=== PATIENT | female | born 1940 | race Caucasian/White ===

== ENCOUNTER 2018-11-18 22:35 | Inpatient (IN) | payer MEDICARE, OTHER ==
[~2018-11-18] VITALS: Ht 162.6 cm; Wt 58.6 kg
[2018-11-18 22:45] VITALS: BP 126/72
[2018-11-18] MEDS ORDERED: NS (IVPB) 100 ML ONE (22:52)
[2018-11-18] MEDS ORDERED: DILTIAZEM 125 MG/25 ML IV (CARDIZEM) IV ONE (22:53)
[2018-11-18 23:00] VITALS: BP 82/50
[2018-11-18] MEDS ORDERED: ONDANSETRON 4 MG/2 ML (SDV) Z0FRAN IVP PRN (23:00)
[2018-11-18] MEDS ORDERED: ACETAMINOPHEN 500 MG TAB (TYLENOL) PO PRN (23:00)
[2018-11-18 23:15] VITALS: BP 103/49
[2018-11-18 23:30] VITALS: BP 118/64
[2018-11-18] MEDS ORDERED: HEParin DRIP 25000 UNIT/500ML 500 ML IV SCH ×2 (23:31→23:49)
[2018-11-18] MEDS ORDERED: HEParin 1000 UNIT/ML (10ML VIAL) FOR BOLUS IV PRN (23:45)
[2018-11-19] VITALS (30 sets, daily range): BP systolic 71–132; BP diastolic 39–80
[2018-11-19] MEDS ORDERED: NS IV 500 ML 500 ML ONE (00:15)
[2018-11-19 00:32] LABS: HEMOGLOBIN 11.1 G/DL (11.5-16.0); MEAN PLATELET VOLUME 9.6 FL (7.4-10.4); RED CELL DISTRIBUTION WIDTH 12.7 % (10.0-14.5); WHITE BLOOD COUNT 16.1 10^3/uL (4.3-11.0)
[2018-11-19] MEDS: HEParin 1000 UNIT/ML (10ML VIAL) FOR BOLUS IV SCH ×2 (00:36→01:53)
[2018-11-19 00:38] LABS: PROTHROMBIN TIME PATIENT 13.7 SEC (12.2-14.7)
[2018-11-19] MEDS ORDERED: NS IV 1000 ML 500 ML IV SCH (01:00)
[2018-11-19] MEDS: DILTIAZEM IV FOR DRIP 125 MG in NS (IVPB) 100 ML IV SCH ×2 (01:38→09:05)
[2018-11-19] MEDS ORDERED: NS IV 500 ML 500 ML IV SCH (02:30)
[2018-11-19] MEDS ORDERED: NS (IVPB) 500 ML IV ONE (02:30)
[2018-11-19 03:26] LABS: BASOPHILS % (AUTO) 0 % (0-10); EOSINOPHILS % (AUTO) 0 % (0-10); HEMATOCRIT 31 % (35-52); HEMOGLOBIN 10.9 G/DL (11.5-16.0); LYMPHOCYTES # (AUTO) 1.4 X 10^3 (1.0-4.0); LYMPHOCYTES % (AUTO) 9 % (12-44); MEAN CORPUSCULAR HEMOGLOBIN 33 PG (25-34); MEAN CORPUSCULAR HGB CONC 35 G/DL (32-36); MEAN CORPUSCULAR VOLUME 94 FL (80-99); MEAN PLATELET VOLUME 9.1 FL (7.4-10.4); MONOCYTES # (AUTO) 1.2 X 10^3 (0.0-1.0); MONOCYTES % (AUTO) 8 % (0-12); NEUTROPHILS # (AUTO) 12.4 X 10^3 (1.8-7.8); NEUTROPHILS % (AUTO) 83 % (42-75); PLATELET COUNT 253 10^3/uL (130-400); RED CELL DISTRIBUTION WIDTH 12.4 % (10.0-14.5); WHITE BLOOD COUNT 14.9 10^3/uL (4.3-11.0)
[2018-11-19 03:38] LABS: BUN/CREATININE RATIO 22; CALCIUM 8.1 MG/DL (8.5-10.1); CARBON DIOXIDE 18 MMOL/L (21-32); CHLORIDE 105 MMOL/L (98-107); CREATININE SERUM 0.67 MG/DL (0.60-1.30); GFR ESTIMATED > 60; GLUCOSE 112 MG/DL (70-105); MAGNESIUM 1.8 MG/DL (1.6-2.4); PHOSPHORUS 2.9 MG/DL (2.3-4.7); POTASSIUM 3.8 MMOL/L (3.6-5.0); SODIUM 134 MMOL/L (135-145)
[2018-11-19 05:20] LABS: LYMPHOCYTES % (MANUAL) 13 %; MONOCYTES % (MANUAL) 6 %; NEUTROPHILS % (MANUAL) 81 %
--- NOTE | 2018-11-19 05:45 | Pulmonary Consultation ---
History of Present Illness History of Present Illness Date of Consultation 11/19/18 05:40 Time Seen by Provider: 05:40 Date of Admission History of Present Illness 78yo [place] [facility] [place] Afib RVR and Troponin [place] [facility] 1.34. Pt describes pain as midepigastric pain radiating up her chest while eating. No prior episodes like this. Pain was relieved upon [facility] [place]. Symptom onset was at 1am after returning from [facility]. She was nauseated and "I made my self vomit". No wt loss Allergies and Home Medications Allergies Coded Allergies: meperidine (Verified Allergy, Unknown, 11/18/18) Past Awndmeh-Sjfpcq-Whmfhh Hx Patient Social History Alcohol Use: Denies Use Recreational Drug Use: No Recent Hopitalizations: No Seasonal Allergies Seasonal Allergies: No Past Medical History Surgeries: Yes Respiratory: No Cardiac: Yes Neurological: No : No Female Reproductive Disorders: Denies Sexually Transmitted Disease: No HIV/AIDS: No Genitourinary: No Gastrointestinal: Yes Ulcer Musculoskeletal: Yes Chronic Back Pain Endocrine: No HEENT: No Loss of Vision: Denies Hearing Impairment: Denies Cancer: Yes Skin Did You Recieve Any Treatments: Yes What Type of Treatment Did You: Surgical Intervention Psychosocial: No Integumentary: Yes (skin cancer) Blood Disorders: No Adverse Reaction/Blood Tranf: No Family Medical History Myocardial infarction 19 FATHER Review of Systems Time Seen by Provider: 06:01 Constitutional: Weakness, Malaise; No: Fever, Chills, Sweats, Other Eyes: No: Pain, Vision change, Conjunctivae inflammation, Eyelid inflammation, Other, Redness ENT: No: Ear pain, Ear discharge, Nose pain, Nose discharge, Nose congestion, Mouth pain, Mouth swelling, Throat pain, Throat swelling, Other Respiratory: No: Cough, Dry, Shortness of breath, SOB with excertion, Wheezing, Hemoptysis, Pleuritic Pain, Sputum, Wheezing, Other Cardiovascular: Chest Pain, Palpitations, Lt Headedness; No: Orthopnea, Paroxysmal Noc. Dyspnea, Edema, Other Gastrointestinal: Nausea, Vomiting, Abdominal Pain; No: Diarrhea, Constipation Neurological: Weakness; No: Change in speech, Confusion Sepsis Event Evaluation Height, Weight, BMI Height: 5'4.00" Weight: 122lbs. 4.0oz. 55.222133pg; 21.0 BMI Method: Exam Exam Vital Signs Date Time Temp Pulse Resp B/P (MAP) Pulse Ox O2 Delivery O2 Flow Rate FiO2 11/19/18 05:00 89 23 94/56 (69) 96 Room Air 11/19/18 04:00 97 Room Air 11/19/18 04:00 98.0 11/19/18 04:00 97 24 102/46 (64) 96 Room Air 11/19/18 03:00 98 26 104/45 (64) 97 Room Air 11/19/18 02:30 109 18 97/46 (63) 95 Room Air 11/19/18 02:00 102 25 103/48 (66) 97 Room Air 11/19/18 01:30 104 27 95/40 (58) 97 Room Air 11/19/18 01:00 94 22 97/47 (64) 95 Room Air 11/19/18 01:00 94 11/19/18 00:30 94 26 115/64 (81) 98 Room Air 11/19/18 00:00 88 15 89/39 (56) 92 Room Air 11/19/18 00:00 97 Room Air 11/18/18 23:30 92 18 118/64 (82) 90 Room Air 11/18/18 23:15 92 22 103/49 (67) 98 Room Air 11/18/18 23:01 105 11/18/18 23:00 85 22 82/50 (61) 96 Room Air 11/18/18 22:45 97.0 114 15 126/72 (90) 97 Room Air 11/18/18 22:45 97 Room Air I & O 11/19/18 07:00 Intake Total 500 ml Output Total 150 ml Balance 350 ml Height & Weight Height: 5'4.00" Weight: 122lbs. 4.0oz. 55.749740pe; 21.0 BMI Method: General Appearance: No Apparent Distress, WD/WN, Thin HEENT: PERRL/EOMI, Pharynx Normal Neck: Full Range of Motion, Non Tender, Supple Respiratory: No Accessory Muscle Use, No Respiratory Distress, Decreased Breath Sounds Cardiovascular: Regular Rate, Rhythm, No Edema, No Gallop Capillary Refill: Less Than 3 Seconds Gastrointestinal: normal bowel sounds, non tender, soft, no organomegaly Extremity: Normal Capillary Refill, Non Tender, No Pedal Edema Neurologic/Psychiatric: Alert, Oriented x3 Skin: Normal Color, Warm/Dry Lymphatic: No Adenopathy Results Lab Laboratory Tests 11/19/18 00:18 11/19/18 03:14 Assessment/Plan Assessment/Plan Afib RVR-- New on set - Currently controlled -Possible LUDY and cardioversion today -Cardizem gtt is currently off -Hep gtt Midepigastric pain -Check Amylase, Lipase -Start protonix -Monitor - resolved since admission -recheck troponin and EKG Hypotension -improved with IVF -Continue to monitor -IVF 125 NS Hyponatremia -monitor --Denies wt loss Tobacco use -education DWAYNE LONG DO Nov 19, 2018 05:45
[2018-11-19] MEDS: NS IV 1000 ML 1,000 ML IV SCH ×5 (06:15→22:25)
[2018-11-19 06:35] LABS: ALANINE AMINOTRANSFERASE 8 U/L (0-55); ALBUMIN 3.3 GM/DL (3.2-4.5); ALKALINE PHOSPHATASE 59 U/L (40-136); AMYLASE 32 U/L (25-125); BILIRUBIN,TOTAL 0.9 MG/DL (0.1-1.0); BUN/CREATININE RATIO 24; CARBON DIOXIDE 17 MMOL/L (21-32); CHLORIDE 105 MMOL/L (98-107); CREATININE SERUM 0.66 MG/DL (0.60-1.30); GFR ESTIMATED > 60; GLUCOSE 116 MG/DL (70-105); LIPASE 37 U/L (8-78); POTASSIUM 3.7 MMOL/L (3.6-5.0); SODIUM 133 MMOL/L (135-145); TOTAL PROTEIN 5.5 GM/DL (6.4-8.2)
[2018-11-19] MEDS: KCL 20 MEQ TAB (K-DUR) PO SCH (06:38)
[2018-11-19] MEDS: MAGNESIUM 1 GM/100 ML IVPB 100 ML IV SCH (06:38)
[2018-11-19] MEDS: POTASSIUM CL 10MEQ/50ML IVPB 50 ML IV SCH (06:38)
[2018-11-19] MEDS: PANTOPRAZOLE 40 MG (PROTONIX) TAB PO SCH (08:06)
--- NOTE | 2018-11-19 08:42 | Diagnostic Imaging Report ---
INDICATION: Atrial fibrillation and myocardial infarction. Frontal chest obtained at 3:05 a.m. FINDINGS: Heart and mediastinal silhouette are normal in appearance. There are chronic appearing increased interstitial markings. There is no acute consolidation or pneumothorax or pleural fluid. There is calcified granuloma in the left lung base and calcified nodes in the left hilum compatible with old granulomatous change. IMPRESSION: Chronic appearing increased interstitial markings. Old granulomatous changes on left-sided above. No acute consolidation or pleural fluid. Dictated by: Dictated on workstation # [id number]
--- NOTE | 2018-11-19 09:03 | History & Physical-Hospitalist ---
History of Present Illness HPI/Chief Complaint Patient is a 78-year-old female with a past medical history of hypertension and tobacco abuse who presented to the emergency department with a chief complaint of weakness and chest pain. She states states that her symptoms started on November 17 [place]. She developed severe mid chest and epigastric pain that she associated with shortness of breath and diaphoresis. Despite this she ate this a.m. and scalloped potatoes which did not help her symptoms. 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 She denies any palpitations, dyspnea on exertion, shortness of breath, previous episodes. She still has lower chest and epigastric pain at this time. It emergency room she was found to have elevated troponin of 1.3 and to be in atrial fibrillation with rapid ventricular rate. She has no known history of coronary artery disease or atrial fibrillation. Source: patient Exam Limitations: no limitations Date Seen 11/19/18 Time Seen by a Provider: 09:02 Attending Physician Cynthia Reyes MD PCP No,Local Physician Referring Physician Date of Admission Nov 18, 2018 at 22:35 Home Medications & Allergies Home Medications Reviewed patient Home Medication Reconciliation performed by pharmacy medication reconciliations mining technician and/or nursing. Patients Allergies have been reviewed. Allergies Allergies Coded Allergies meperidine (Verified Allergy, Unknown, 11/18/18) Past Ypptnct-Hpemin-Fjuynm Hx Past Med/Social Hx: Reviewed Nursing Past Med/Soc Hx Patient Social History Marrital Status: Alcohol Use: Denies Use Recreational Drug Use: No Smoking Status: Current Everyday Smoker Cigaretts per day: 20 Type Used: Cigarettes Physical Abuse Screen: No Sexual Abuse: No Recent Hopitalizations: No Seasonal Allergies Seasonal Allergies: No Past Medical History Surgeries: Appendectomy, Section, Hysterectomy, Tonsillectomy Cardiac: Hypertension : No Sexually Transmitted Disease: No HIV/AIDS: No Female Reproductive Disorders: Denies Gastrointestinal: Ulcer Musculoskeletal: Chronic Back Pain Loss of Vision: Denies Hearing Impairment: Denies Cancer: Skin Did You Recieve Any Treatments: Yes What Type of Treatment Did You: Surgical Intervention History of Blood Disorders: No Adverse Reaction to Blood Peters: No Family History Reviewed Nursing Family Hx Myocardial infarction 19 FATHER Heart Disease Review of Systems Constitutional: diaphoresis, malaise, weakness EENTM: no symptoms reported Respiratory: No hemoptysis, No orthopnea; phlegm, other (pain with inspiration) Cardiovascular: chest pain; No edema, No Hx of Intervention, No palpitations Gastrointestinal: abdominal pain; No constipation, No diarrhea; nausea, vomiting Genitourinary: no symptoms reported Musculoskeletal: no symptoms reported Skin: no symptoms reported Psychiatric/Neurological: No Symptoms Reported Physical Exam Physical Exam Vital Signs Vital Signs - First Documented 11/18/18 22:45 Temp 97.0 Pulse 114 Resp 15 B/P (MAP) 126/72 (90) Pulse Ox 97 O2 Delivery Room Air Capillary Refill : Less Than 3 Seconds Height, Weight, BMI Height: 5'4.00" Weight: 126lbs. 1.0oz. 57.472387ao; 21.0 BMI Method: General Appearance: No Apparent Distress, WD/WN, Thin Eyes: Right Eye Normal Inspection, Right Eye PERRL HEENT: PERRL/EOMI, Normal ENT Inspection, Moist Mucous Membranes; No Scleral Icterus (L), No Scleral Icterus (R) Neck: Normal Inspection, Supple Respiratory: Chest Non Tender, Lungs Clear, No Accessory Muscle Use, No Respiratory Distress Cardiovascular: No Edema, No JVD, No Murmur, Normal Peripheral Pulses, Irregularly Irregular Gastrointestinal: Normal Bowel Sounds, Non Tender, Soft; No Distended, No Guarding Genital/Rectal: Other Extremity: Normal Capillary Refill, Normal Inspection, Non Tender, No Calf Tenderness, No Pedal Edema Neurologic/Psychiatric: Alert, Oriented x3, Normal Mood/Affect; No Aphasia, No Facial Droop Skin: Normal Color, Warm/Dry Results Results/Procedures Labs Laboratory Tests 11/19/18 00:18 11/19/18 03:14 11/19/18 05:55 Patient resulted labs reviewed. Imaging: Reviewed Imaging Report Assessment/Plan Admission Diagnosis Atrial Fibrillation with RVR NSTEMI Admission Status: Inpatient Order (span 2 midnights) Reason for Inpatient Admission: On IV cardizem gtt, needs cardiology consult possible cath or cardioversion Assessment and Plan Atrial fibrillation with rapid ventricular rate Continue Cardizem drip Continue heparin drip Cardiology consultation appreciate Recs Heart rate still in the 120s during my exam may potentially need cardioversion as was also mildly hypotensive on just 2.5 of Cardizem NSTEMI Cardiology consultation [place] [facility] [place] on telemetry Troponin trended down from 1.3-1.0 today Normocytic anemia trend Leukocytosis No evidence of infection or sepsis likely reactive Hypertension Hold home medications for hypotension while on Cardizem Tobacco abuse Recommend smoking cessation Diet: nothing by mouth DVT prophylaxis: heparin drip Diagnosis/Problems Diagnosis/Problems (1) Atrial fibrillation with RVR (2) Non-STEMI (non-ST elevated myocardial infarction) (3) Tobacco abuse (4) Essential (primary) hypertension (5) Normocytic anemia Clinical Quality Measures DVT/VTE Risk/Contraindication: Risk Factor Score Per Nursin RFS Level Per Nursing on Admit: 4+=Very High Copy Copies To 1: BECKI GOMEZ MD, KATELYN M MD Nov 19, 2018 9:02 am
[2018-11-19] MEDS ORDERED: AMIODARONE FOR BOLUS 150 MG in D5W 100 ML IVPB 100 ML IV NR (12:30)
--- NOTE | 2018-11-19 12:42 | Consultation-Cardiology ---
HPI-Cardiology Cardiology Consultation: Date of Consultation 11/19/18 Date of Admission Attending Physician Cynthia Reyes MD Admitting Physician No,Local Physician Consulting Physician Tj SAUL MD HPI: Time Seen by a Provider: 11:45 Chief Complaint: chest pain this is a 78-year-old lady with history of hypertension and active smoking who presented to the ER with complaints of chest pain. Substernal and epigastric pain associated with shortness of breath and sweating. Continues to feel weak. She denies any other cardiac symptoms. Moderate to severe intensity. No particular exacerbating or relieving factors. She denies any significant post cardiac history. She was found to be in atrial fibrillation with rapid ventricular rate. Troponin was also significantly elevated. She was therefore transferred to our hospital for further management. When I saw her this morning she was still having mild chest discomfort. Review of Systems-Cardiology Review of Systems Constitutional: As described under HPI; No As described under HPI, No no symptoms reported, No chills, No fever, No lightheadedness Eyes: No As described under HPI, No no symptoms reported, No blindness, No blurred vision, No contact lenses, No drainage, No decreased acuity, No foreign body sensation, No pain, No vision change Ears/Nose/Throat: No As described under HPI, No no symptoms reported, No chronic hearing loss, No ear discharge, No ear pain, No nasal drainage, No ulcerations Respiratory: No no symptoms reported; As described under HPI; No As described under HPI, No cough, No orthopnea; shortness of breath; No SOB with excertion Cardiovascular: No no symptoms reported; As described under HPI; No As described under HPI; chest pain; No edema, No irregular heart rate, No lightheadedness, No palpitations Gastrointestinal: No no symptoms reported, No As described under HPI, No abdomen distended, No abdominal pain, No blood streaked bowels, No constipation, No diarrhea, No nausea, No vomiting, No stool coloration changes Genitourinary: No As described under HPI, No burning, No dysuria, No discharge, No frequency, No flank pain, No hematuria, No urgency : Yes : No Skin: No rash, No skin related problems, No ulcerations Psychiatric/Neurological: No anxiety, No depression, No seizure, No focal weakness, No syncope Hematologic: No bleeding abnormalities YRK-Zbsxvs-Vljkaq Hx Patient Social History Marrital Status: Alcohol Use: Denies Use Recreational Drug Use: No Smoking Status: Current Everyday Smoker Cigaretts per day: 20 Type Used: Cigarettes Physical Abuse Screen: No Sexual Abuse: No Past Medical History PMH As described under Assessment. Family Medical History Family History: Myocardial infarction 19 FATHER Allergies and Home Medications Allergies Coded Allergies: meperidine (Verified Allergy, Unknown, 11/18/18) Patient Home Medication List Home Medication List Reviewed: Yes Physical Exam-Cardiology Physical Exam Vital Signs/I&O 11/19/18 11/19/18 11/19/18 11/19/18 02:00 02:30 03:00 04:00 Pulse 102 109 98 97 Resp 25 18 26 24 B/P (MAP) 103/48 (66) 97/46 (63) 104/45 (64) 102/46 (64) Pulse Ox 97 95 97 96 O2 Delivery Room Air Room Air Room Air Room Air 11/19/18 11/19/18 11/19/18 11/19/18 04:00 04:00 05:00 06:00 Temp 98.0 Pulse 89 109 Resp 23 24 B/P (MAP) 94/56 (69) 113/49 (70) Pulse Ox 97 96 96 O2 Delivery Room Air Room Air Room Air 11/19/18 11/19/18 11/19/18 11/19/18 07:00 07:00 08:00 08:00 Pulse 103 107 102 Resp 15 27 B/P (MAP) 102/50 (67) 118/54 (75) Pulse Ox 97 97 96 O2 Delivery Room Air Room Air Room Air 11/19/18 11/19/18 11/19/18 11/19/18 09:00 09:05 10:00 11:00 Pulse 109 113 101 96 Resp 16 29 28 B/P (MAP) 104/55 (71) 104/55 115/44 (67) 111/54 (73) Pulse Ox 97 95 96 O2 Delivery Room Air Room Air Room Air 11/19/18 11/19/18 12:00 12:00 Pulse 96 Resp 27 B/P (MAP) 120/54 (76) Pulse Ox 96 97 O2 Delivery Room Air Room Air Capillary Refill : Less Than 3 Seconds Constitutional: appears stated age, AAO x 3; No apparent distress; well-developed, well-nourished HEENT: PERRL; No normal ENT inspection, No TMs normal, No pharynx normal, No scleral icterus (R), No scleral icterus (L), No pale conjunctivae (R), No pale conjunctivae (L), No photophobia, No TM abnormal (R), No TM abnormal (L), No pharyngeal erythema, No tonsillar exudate, No other, No discharge, No EOMI; hearing is well preserved; No hard of hearing; oral hygience is good; No ulceration, No xanthelasmas are seen Neck: No non-tender, No full range of motion, No supple, No normal inspection, No carotid bruit, No limited range of motion, No lymphadenopathy (R), No lymphadenopathy (L), No tender lateral, No tender midline, No thyromegaly, No other; carotid pulses are 2 + bilaterally; No with good upstrokes Respiratory: No accessory muscle use, No respiratory distress, No chest tender, No chest expansion is symmetric; chest is bilaterally symmetric; No lungs clear to percussion; lungs clear to auscultation; No crackles, No rhonchi, No rales, No stridor, No wheezing, No pleural rub, No other Cardiovascular: No regular rate-rhythm; irregularly irregular; No extra beats, No parasternal heave is noted, No JVD, No edema, No bradycardia; tachycardia; No point of maximal impulse, No cardiac thrills are palpable; S1 and S2; No gallop/S3, No gallop/S4, No diastolic murmur; systolic murmur; No friction rub, No click, No other Gastrointestinal: No tender, No soft, No round, No distended, No pulsatile mass, No organomegaly, No guarding, No rebound, No tenderness, No hernia, No mass, No audible bowel sounds, No abnormal bowel sounds, No abdominal bruits, No spleenomegaly, No other Rectal: deferred Extremities: No normal range of motion, No non-tender, No normal inspection, No pedal edema, No calf tenderness, No normal capillary refill, No pelvis stable, No calf tenderness, No inflammation, No pedal edema, No slow capillary refill, No swelling, No other, No abrasion, No clubbing, No cyanosis, No ecchymosis, No laceration, No no lower extremity edema bilateral, No significant edema, No t enderness, No wound Neurologic/Psychiatric: no motor/sensory deficits, alert, normal mood/affect, oriented x 3, power is 5/5 both on sides Skin: No normal color, No warm/dry, No cyanosis, No cool, No diaphoresis, No damp, No ecchymosis, No jaundice, No mottled, No pallor, No rash, No tattoos/piercings, No ulcerations, No rash on exposed areas, No ulcerations on exposed areas, No other Data Review Labs Laboratory Tests 11/19/18 00:18: White Blood Count 16.1H, Red Blood Count 3.38L, Hemoglobin 11.1L, Hematocrit 32L , Mean Corpuscular Volume 94, Mean Corpuscular Hemoglobin 33, Mean Corpuscular Hemoglobin Concent 35, Red Cell Distribution Width 12.7, Platelet Count 275, Mean Platelet Volume 9.6, Prothrombin Time 13.7, INR Comment 1.0, Activated Partial Thromboplast Time 45H 11/19/18 03:14: White Blood Count 14.9H, Red Blood Count 3.33L, Hemoglobin 10.9L, Hematocrit 31L , Mean Corpuscular Volume 94, Mean Corpuscular Hemoglobin 33, Mean Corpuscular Hemoglobin Concent 35, Red Cell Distribution Width 12.4, Platelet Count 253, Mean Platelet Volume 9.1, Neutrophils (%) (Auto) 83H, Lymphocytes (%) (Auto) 9L, Monocytes (%) (Auto) 8, Eosinophils (%) (Auto) 0, Basophils (%) (Auto) 0, Neutrophils # (Auto) 12.4H, Lymphocytes # (Auto) 1.4, Monocytes # (Auto) 1.2H, Eosinophils # (Auto) 0.0, Basophils # (Auto) 0.0, Neutrophils % (Manual) 81, L ymphocytes % (Manual) 13, Monocytes % (Manual) 6, Sodium Level 134L, Potassium Level 3.8, Chloride Level 105, Carbon Dioxide Level 18L, Anion Gap 11, Blood Urea Nitrogen 15, Creatinine 0.67, Estimat Glomerular Filtration Rate > 60, BUN/Creatinine Ratio 22, Glucose Level 112H, Calcium Level 8.1L, Phosphorus Level 2.9, Magnesium Level 1.8 11/19/18 05:55: Activated Partial Thromboplast Time > 200*H, Sodium Level 133L, Potassium Level 3.7, Chloride Level 105, Carbon Dioxide Level 17L, Anion Gap 11, Blood Urea Nitrogen 16, Creatinine 0.66, Estimat Glomerular Filtration Rate > 60, BUN/Creatinine Ratio 24, Glucose Level 116H, Calcium Level 8.0L, Lactic Acid Level 0.90, Corrected Calcium 8.6, Total Bilirubin 0.9, Aspartate Amino Transf (AST/SGOT) 19, Alanine Aminotransferase (ALT/SGPT) 8, Alkaline Phosphatase 59, Troponin I 1.012*H, Total Protein 5.5L, Albumin 3.3, Amylase Level 32, Lipase 37 ECG Impression ECG Initial ECG Impression: Atrial Fibrillation Comment ST depressions noted. A/P-Cardiology Assessment/Admission Diagnosis non-STEMI, Atrial fibrillation with rapid ventricular rate, Shortness of breath, Pulmonary hypertension, Aortic stenosis, Leukocytosis, Anemia, Active smoking, COPD. Plan non-STEMI, refractory to medical therapy with ongoing chest pain. Patient was given bolus dual antiplatelet therapy and IV heparin. Positive troponin. Coronary angiography is recommended. Discussed at length and all risks and complication were explained. Informed consent was taken. Echocardiogram done 11/19/2018 showed normal LV function with no wall motion abnormalities. Mildly dilated left atrium. Pulmonary hypertension with PA pressure of 50 mmHg.ette-lh-pdclyzpb aortic stenosis with mean gradient of 15 mmHg. Aortic valve area between 1.3-1.6 cm. Atrial fibrillation with rapid ventricular rate, was on IV heparin and Cardizem infusion. However the patient was borderline hypotensive therefore Cardizem infusion was reduced. I will start the patient on amiodarone. Pathophysiology of atrial fibrillation was discussed including stroke prevention. She will require Eliquis after coronary angiography. If she does not convert by tomorrow morning she will require transesophageal echocardiogram assisted cardioversion. The patient understands the risk associated with the procedure. Shortness of breath, echocardiogram did not show any significant LV systolic dysfunction. Diastolic evaluation could not be completed due to atrial fibrillation. Bfse-ea-slndxxkf aortic stenosis. Pulmonary hypertension, likely due to COPD. Aortic stenosis,fubm-af-tjnqyeoc with mean gradient of 15 mmHg. Leukocytosis,unclear etiology. Anemia,defer to the primary team. Active smoking, smoking cessation was strongly recommended. COPD.defer to the primary team. Critically ill patient with numerous medical and cardiac issues. Over 30 minutes was spent taking care of the patient as well as coordinating care. Thank you for your consultation. Please call me if you have any questions. Medina Saul MD, FACP, FACC, FSCAI, FHRS, CCDS Interventional Cardiology Cardiac Electrophysiology Vascular Medicine and Endovascular Interventions Clinical Quality Measures DVT/VTE Risk/Contraindication: Risk Factor Score Per Nursin RFS Level Per Nursing on Admit: 4+=Very High Tj SAUL MD Nov 19, 2018 12:42
[2018-11-19] MEDS ORDERED: LIDOCAINE 1% INJ 20 ML 20 ML VIAL ONE (12:56)
[2018-11-19] MEDS ORDERED: fentaNYL INJECTION 100 MCG/2 ML AMP ONE ×3 (12:56→21:54)
[2018-11-19] MEDS ORDERED: MIDAZOLAM 5 MG/5 ML (VERSED) VIAL ONE (12:56)
[2018-11-19] MEDS ORDERED: HEParin (CATH LAB) 2,000 ML IV ONE (12:57)
[2018-11-19] MEDS: AMIODARONE INJECTION 450 MG in D5W IV SOLUTION (EXCEL) 250 ML IV SCH ×2 (13:25→22:46)
[2018-11-19] MEDS ORDERED: NS IV 1000 ML 1,000 ML ONE (14:17)
--- NOTE | 2018-11-19 14:18 | Cardiac Procedure Note-CS/ASA ---
Pre-Procedure Note Pre-Op Procedure Note H&P Reviewed The H&P was reviewed, patient examined and no changes noted. Date H&P Reviewed: Nov 19, 2018 Time H&P Reviewed: 12:00 Conscious Sedation Pre-Proced Time 12:00 ASA Score 3 For ASA 3 and 4: Consider anesthesia and medical clearance. Also, for patients with a history of failed moderate sedation consider anesthesia. Airway Lungs Heart ASA score ASA 1: a normal healthy patient ASA 2: a patient with a mild systemic disease (mid diabetes, controlled hypertension, obesity ASA 3: a patient with a severe systemic disease that limits activity (angina, COPD, prior Myocardial infarction) ASA 4: a patient with an incapacitating disease that is a constant threat to life (CHF, renal failure) ASA 5: a moribund patient not expected to survive 24 hrs. (ruptured aneurysm) ASA 6: a declared brain- patient whose organs are being harvested. For emergent operations, add the letter E after the classification Mallampati Classification Grade 1 Sedation Plan Analgesia, Amnesia, Plan communicated to team members, Discussed options with patient/fam, Discussed risks with patient/fam The patient is an appropriate candidate to undergo the planned procedure, sedation, and anesthesia. The patient immediately re-assessed prior to indication. Tj BECKWITH MD Nov 19, 2018 14:18
[2018-11-19] MEDS ORDERED: PATIENT MAY USE OWN MEDS, ALL PO SCH (14:30)
--- NOTE | 2018-11-19 14:30 | Coronary Angiography Report ---
Coronary Angiography Report DATE OF PROCEDURE: 11/19/18 INDICATION: non-STEMI, poor bilateral lower extremity pulses. PREOPERATIVE DIAGNOSIS: non-STEMI, poor bilateral lower extremity pulses. POSTOPERATIVE DIAGNOSIS: 1. Mild CAD. 2. Moderate aortic stenosis. 3. Moderate to severe PAD. HISTORY: this is a 78-year-old lady who presented with ongoing chest pain with positive troponin. She was also found to be in atrial fibrillation with rapid ventricular rate. She was given dual antiplatelet therapy as well as IV heparin but she continued to have mild chest pain, therefore urgent coronary angiography was recommended. Also she had difficult to palpate pulses in the bilateral lower extremities. My concern was distal embolization with atrial fibrillation and therefore recommended peripheral angiography as well. PROCEDURES PERFORMED: 1.Coronary angiography. 2.Left heart catheterization. 3. Aortic arch angiogram: Medical necessity: Acute ongoing chest pain in a patient with no significant CAD, to rule out proximal aortic aneurysm and dissection. 4. Abdominal aortogram and bilateral lower extremity runoff. COMPLICATIONS: None. SPECIMENS: None. ESTIMATED BLOOD LOSS: 10 mL ANESTHESIA: Conscious sedation ANTICOAGULATION: none. CONTRAST: 74 mL. FLUOROSCOPY: 2.7 minutes. FLOUROSCOPY DOSE: 346 mgy. PROCEDURE DETAILS: The patient is a 78 female and was brought to the pharmacy laboratory technician after informed consent was taken. All the risks and complications were explained in detail; this included the risk of bleeding, vascular damage, stroke, CT and even . The patient was draped and prepped in the usual sterile fashion. Access was gained in the right femoral artery with a 5 Dutch sheath. Coronary angiography, left heart catheterization was performed with a JR4 and JL4 catheter. Aortic arch angiogram and abdominal aortogram with bilateral lower extremity runoff was performed with a pigtail catheter. FINDINGS: 1.Left main: patent. 2.LAD: mild proximal disease.stenosis severity 20-30 percent. 3.Left circumflex artery: mild to moderate first OM disease. Stenosis severity 40 percent. 4.RCA: mild proximal disease. Stenosis severity 20 percent. 5.Left heart catheterization: LV pressure 109/-2 mmHg. LVEDP 15 mmHg. Aortic pressure 75/41 mmHg. Peak to peak gradient 34 mmHg. Normal LV function with no wall motion abnormalities. 6. Aortic arch angiogram: No evidence of ascending aorta aneurysm or dissection. Patent proximal segments of the great arteries. 7. Abdominal aortogram and bilateral lower extremity runoff: Mild diffuse disease in the distal abdominal aorta. possible mild to moderate ostial disease of the right renal artery. Patent left renal artery. Mild bilateral diffuse disease of the common carotid arteries, external iliac arteries, common femoral arteries. Mild to moderate diffuse disease of the right superficial femoral artery, popliteal artery. Two-vessel runoff below the knee in the right lower extremity. Possible moderate to severe disease in the right anterior tibial artery. Patent deep peroneal artery. Moderate to severe diffuse disease of the left superficial femoral artery with high-grade focal stenosis in the distal left superficial femoral artery. Moderate diffuse disease in the left popliteal artery. 2-3 vessel runoff below the knee in the left lower extremity. No high- grade obvious stenosis noted. CONCLUSIONS: 1. Opxy-mx-tqwncoay CAD with no severe stenosis is noted. 2. Normal LV function with moderate aortic stenosis noted. 3. Mild to moderate ostial right renal artery stenosis. 4. Kclk-qs-hccrafix diffuse disease in the right superficial femoral artery. Moderate to severe diffuse disease in the left superficial femoral artery and popliteal artery. 5. Atrial fibrillation. 6. Continue secondary prevention measures for cardiovascular atherosclerotic disease. Medina Saul MD, FACP, FACC, [facility] Interventional Cardiology Tj SAUL MD Nov 19, 2018 14:30
[2018-11-19] MEDS ORDERED: APIXABAN 5 MG (ELIQUIS) TABLET ONE (15:02)
[2018-11-19] MEDS: APIXABAN 5 MG (ELIQUIS) TABLET PO SCH (15:17)
[2018-11-19] MEDS ORDERED: fentaNYL INJECTION 100 MCG/2 ML AMP IVP ONE (16:00)
[2018-11-19] MEDS ORDERED: MELATONIN 3 MG TABLET PO SCH (21:00)
--- NOTE | 2018-11-19 23:05 | NUR ---
TIMELINE NOTE 2099-PT SBP IN 70'S, PT COMPLAINED OF FEELING "HOT", THIS RN WENT TO ASSESS PT AND NOTED A LARGE HEMATOMA TO RIGHT GROIN SITE. MANUAL PRESSURE WAS INITIATED. 2129-MANUAL PRESSURE CONTINUES, NOTIFIED DR BECKWITH OF PT CONDITION, BP 119/47, NORMAL SALINE INFUSING. 2144-MANUAL PRESSURE STOPPED AT THIS TIME, SITE IS SLIGHTLY BRUISED BUT SOFT, ORDERS FROM DR BECKWITH TO CONTINUE BEDREST, AND GIVE 50-100MCG OF FENTANYL IVP PRN FOR BACK PAIN. WILL CONTINUE TO MONITOR.
[2018-11-19] MEDS: fentaNYL INJECTION 100 MCG/2 ML AMP IVP PRN (23:30)
[2018-11-20] VITALS (17 sets, daily range): BP systolic 106–149; BP diastolic 46–110
[2018-11-20 03:52] LABS: BASOPHILS % (AUTO) 0 % (0-10); EOSINOPHILS % (AUTO) 0 % (0-10); HEMATOCRIT 25 % (35-52); HEMOGLOBIN 8.5 G/DL (11.5-16.0); LYMPHOCYTES # (AUTO) 1.8 X 10^3 (1.0-4.0); LYMPHOCYTES % (AUTO) 15 % (12-44); MEAN CORPUSCULAR HEMOGLOBIN 33 PG (25-34); MEAN CORPUSCULAR HGB CONC 34 G/DL (32-36); MEAN CORPUSCULAR VOLUME 97 FL (80-99); MEAN PLATELET VOLUME 9.2 FL (7.4-10.4); MONOCYTES # (AUTO) 1.2 X 10^3 (0.0-1.0); MONOCYTES % (AUTO) 10 % (0-12); NEUTROPHILS # (AUTO) 9.1 X 10^3 (1.8-7.8); NEUTROPHILS % (AUTO) 75 % (42-75); PLATELET COUNT 240 10^3/uL (130-400); RED CELL DISTRIBUTION WIDTH 12.5 % (10.0-14.5); WHITE BLOOD COUNT 12.2 10^3/uL (4.3-11.0)
[2018-11-20] MEDS: fentaNYL INJECTION 100 MCG/2 ML AMP IVP PRN ×4 (04:04→12:05)
[2018-11-20 04:12] LABS: BUN/CREATININE RATIO 29; CALCIUM 7.6 MG/DL (8.5-10.1); CARBON DIOXIDE 15 MMOL/L (21-32); CHLORIDE 110 MMOL/L (98-107); CREATININE SERUM 0.59 MG/DL (0.60-1.30); GFR ESTIMATED > 60; GLUCOSE 100 MG/DL (70-105); MAGNESIUM 1.4 MG/DL (1.6-2.4); PHOSPHORUS 2.5 MG/DL (2.3-4.7); POTASSIUM 3.5 MMOL/L (3.6-5.0); SODIUM 134 MMOL/L (135-145)
[2018-11-20] MEDS: MAGNESIUM 1 GM/100 ML IVPB 100 ML IV SCH ×3 (04:24→05:40)
[2018-11-20] MEDS: POTASSIUM CL 10MEQ/50ML IVPB 50 ML IV SCH (04:24)
[2018-11-20] MEDS: KCL 20 MEQ TAB (K-DUR) PO SCH (04:25)
[2018-11-20] MEDS: NS IV 1000 ML 1,000 ML IV SCH ×3 (06:13→15:46)
[2018-11-20] MEDS ORDERED: NS IV 500 ML 500 ML ONE (06:46)
[2018-11-20] MEDS ORDERED: HURRICAINE EXT TUBE (BENZOCAINE) ONE (07:32)
[2018-11-20] MEDS ORDERED: LIDOCAINE 2% VISCOUS 15 ML UDC ONE (07:32)
--- NOTE | 2018-11-20 08:21 | Pulmonary Progress Note ---
Subjective Time Seen by a Provider: 09:25 Subjective/Events-last exam S/p Heart cath yesterday. Sepsis Event Evaluation Height, Weight, BMI Height: 5'4.00" Weight: 129lbs. 4.0oz. 58.452601zh; 21.0 BMI Method: Focused Exam Lactate Level 11/19/18 05:55: Lactic Acid Level 0.90 Exam Exam Vital Signs Date Time Temp Pulse Resp B/P (MAP) Pulse Ox O2 Delivery O2 Flow Rate FiO2 11/20/18 08:00 92 15 106/50 (68) 97 Room Air 11/20/18 07:00 87 10 115/46 (69) 95 Room Air 11/20/18 07:00 102 11/20/18 06:00 84 13 114/50 (71) 96 Room Air 11/20/18 05:00 82 16 122/52 (75) 95 Room Air 11/20/18 04:06 97.3 11/20/18 04:00 96 Room Air 11/20/18 04:00 88 23 132/58 (82) 97 Room Air 11/20/18 03:00 95 14 136/69 (91) 98 Room Air 11/20/18 02:00 93 16 126/48 (74) 95 Room Air 11/20/18 01:00 95 21 134/65 (88) 98 Room Air 11/20/18 01:00 95 11/20/18 00:00 97.0 11/20/18 00:00 86 17 118/65 (82) 95 Room Air 11/20/18 00:00 96 Room Air 11/19/18 23:00 92 17 132/46 (74) 98 Room Air 11/19/18 22:00 92 17 117/59 (78) 96 Room Air 11/19/18 21:00 110 18 71/41 (51) 97 Room Air 11/19/18 20:00 85 19 105/45 (65) 97 Room Air 11/19/18 20:00 96 Room Air 11/19/18 20:00 98.0 11/19/18 19:00 83 11/19/18 19:00 83 25 116/52 (73) 96 Room Air 11/19/18 18:00 86 22 99/58 (72) 96 Room Air 11/19/18 16:45 96 19 100/48 (65) 95 Room Air 11/19/18 16:15 84 13 107/63 (78) 89 Room Air 11/19/18 16:00 94 Room Air 11/19/18 16:00 98.1 11/19/18 15:45 90 14 132/64 (86) 97 Room Air 11/19/18 15:30 92 16 116/57 (76) 97 Room Air 11/19/18 15:15 90 23 113/51 (71) 97 Room Air 11/19/18 15:00 87 24 112/56 (74) 97 Room Air 11/19/18 14:45 93/47 (62) 95 Room Air 11/19/18 13:00 109 11/19/18 13:00 109 23 128/80 (96) 96 Room Air 11/19/18 12:00 96 27 120/54 (76) 97 Room Air 11/19/18 12:00 96 Room Air 11/19/18 12:00 97.8 11/19/18 11:00 96 28 111/54 (73) 96 Room Air 11/19/18 10:00 101 29 115/44 (67) 95 Room Air 11/19/18 09:05 113 104/55 11/19/18 09:00 109 16 104/55 (71) 97 Room Air I & O 11/20/18 07:00 Intake Total 2563 ml Output Total 1190 ml Balance 1373 ml Height & Weight Height: 5'4.00" Weight: 129lbs. 4.0oz. 58.906448cw; 21.0 BMI Method: General Appearance: No Apparent Distress, WD/WN, Thin HEENT: PERRL/EOMI, Normal ENT Inspection, Moist Mucous Membranes; No Scleral Icterus (L), No Scleral Icterus (R) Neck: Normal Inspection, Supple Respiratory: Chest Non Tender, Lungs Clear, No Accessory Muscle Use, No Respiratory Distress Cardiovascular: No Edema, No JVD, No Murmur, Normal Peripheral Pulses, Irregularly Irregular Capillary Refill: Less Than 3 Seconds Gastrointestinal: normal bowel sounds, non tender, soft, no organomegaly Extremity: Normal Capillary Refill, Normal Inspection, Non Tender, No Calf Tenderness, No Pedal Edema Neurologic/Psychiatric: Alert, Oriented x3, Normal Mood/Affect; No Aphasia, No Facial Droop Skin: Normal Color, Warm/Dry Lymphatic: No Adenopathy Results Lab Laboratory Tests 8/18/19 00:18 11/19/18 03:14 11/19/18 05:55 11/20/18 03:36 Assessment/Plan Assessment/Plan Afib RVR-- New on set - Currently controlled -Possible LUDY and cardioversion today -Amio gtt -S/P cath yesterday shows normal EF, mod , mild/mod CAD -Hep gtt Midepigastric pain - Amylase, Lipase -Normal -protonix -Monitor - resolved since admission -recheck troponin and EKG Hypomag, hypokalemia -replace Hyponatremia -monitor --Denies wt loss Tobacco use -education DWAYNE LONG DO Nov 20, 2018 08:21
[2018-11-20] MEDS: PANTOPRAZOLE 40 MG (PROTONIX) TAB PO SCH (08:27)
[2018-11-20] MEDS: APIXABAN 5 MG (ELIQUIS) TABLET PO SCH (08:28)
[2018-11-20] MEDS ORDERED: LIDOCAINE 2% VISCOUS 15 ML UDC PO ONE (09:00)
[2018-11-20] MEDS ORDERED: ASPIRIN E.C. 81 MG (ECOTRIN) TAB PO SCH (09:00)
[2018-11-20] MEDS ORDERED: HURRICAINE EXT TUBE (BENZOCAINE) XX ONE (09:00)
[2018-11-20] MEDS ORDERED: KCL 20 MEQ TAB (K-DUR) PO ONE (09:00)
[2018-11-20] MEDS ORDERED: LISI10TA2 PO (09:58)
[2018-11-20] MEDS ORDERED: CALC-823 PO (09:58)
[2018-11-20] MEDS ORDERED: ACET-93 PO (09:58)
--- NOTE | 2018-11-20 09:59 | NUR ---
SPOKE WITH PT WELL GOING OVER THE EXT MED HISTORY TO COMPLETE THE MED REC. PATIENT SAYS SHE IS ONLY ON LISINOPRIL (THE EXT MED HISTORY ALSO SHOWS THAT). OTC MEDS: TYLENOL 500M TABS Q 6 H PRN CALCIUM: 1 DAILY
[2018-11-20] MEDS ORDERED: proPOfol 200 MG/20 ML (DIPRIVAN) VIAL IV ONE (14:02)
--- NOTE | 2018-11-20 14:28 | Anesthesia-Procedure Note ---
Procedures/Interventions Procedure Start/Stop/Diagnosis Date of Procedure: Nov 20, 2018 Start Time: 13:35 Referring Physician: Dr Saul Preprocedural Diagnosis: A-fib Brief History Anesthesia Note ([id number]) Called to ICU 11 for sedation (MAC) for LUDY/cardioversion. Brief history obtained from patient and Dr Saul, NPO status verified. Propofol 100 mg IV given in divided doses for sedation. Pt maintained spontaneous ventilation and stable vital signs throughout. Stop Time: 14:00 Postprocedural Diagnosis: Sinus Rhythm LUDY/Cardioversion Anesthesia Type: MAC ASA Class: 3 Medications Propofol 100 mg IV in divided doses Monitors and Equipment: BP Cuff - Left, Continuous EKG, End Tidal CO2, IV, Pulse Oximeter, V Lead EKG HORACIO RAWLS DO Nov 20, 2018 14:28
--- NOTE | 2018-11-20 14:29 | Anesthesia-General Post-Op ---
MAC Patient Condition Mental Status/LOC: Same as Preop Cardiovascular: Satisfactory Nausea/Vomiting: Absent Respiratory: Satisfactory Pain: Controlled Complications: Absent Post Op Complications Complications None Follow Up Care/Instructions Patient Instructions None needed. Anesthesiology Discharge Order Discharge Order Patient is doing well, no complaints, stable vital signs, no apparent adverse anesthesia problems. HORACIO RAWLS DO Nov 20, 2018 14:29
[2018-11-20] MEDS ORDERED: DILTIAZEM 120 MG (CARDIZEM CD) CAP PO SCH (14:30)
[2018-11-20] MEDS ORDERED: AMIODARONE 200 MG (CORDARONE) TAB ONE (14:57)
--- NOTE | 2018-11-20 15:41 | Cardiology Progress Note ---
Cardiology SOAP Progress Note Subjective: Continues to be in atrial fibrillation. Objective: I&O/Vital Signs 11/20/18 11/20/18 11/20/18 11/20/18 04:00 04:00 04:06 05:00 Temp 97.3 Pulse 88 82 Resp 23 16 B/P (MAP) 132/58 (82) 122/52 (75) Pulse Ox 97 96 95 O2 Delivery Room Air Room Air Room Air 11/20/18 11/20/18 11/20/18 11/20/18 06:00 07:00 07:00 08:00 Pulse 84 102 87 Resp 13 10 B/P (MAP) 114/50 (71) 115/46 (69) Pulse Ox 96 95 95 O2 Delivery Room Air Room Air Room Air 11/20/18 11/20/18 11/20/18 11/20/18 08:00 08:00 09:00 10:00 Temp 97.9 Pulse 92 90 92 Resp 15 18 14 B/P (MAP) 106/50 (68) 123/55 (77) 130/57 (81) Pulse Ox 97 96 97 O2 Delivery Room Air Room Air Room Air 11/20/18 11/20/18 11/20/18 11/20/18 11:00 12:00 12:36 13:00 Pulse 75 88 92 101 Resp 15 19 14 B/P (MAP) 115/50 (71) 140/99 (113) 112/48 (69) Pulse Ox 96 96 96 O2 Delivery Room Air Room Air Room Air 11/20/18 11/20/18 13:58 14:00 Pulse 71 70 Resp 15 B/P (MAP) 124/55 (78) O2 Delivery Room Air 11/20/18 00:00 Intake Total 1463 ml Output Total 600 ml Balance 863 ml Weight (Pounds): 129 Weight (Ounces): 4.0 Weight (Calculated Kilograms): 58.576206 Constitutional: appears stated age, AAO x 3; No apparent distress; well- developed, well-nourished Respiratory: No accessory muscle use, No respiratory distress, No chest tender, No chest expansion is symmetric; chest is bilaterally symmetric; No lungs clear to percussion; lungs clear to auscultation; No crackles, No rhonchi, No rales, No stridor, No wheezing, No pleural rub, No other Cardiovascular: No regular rate-rhythm; irregularly irregular; No extra beats, No parasternal heave is noted, No JVD, No edema, No bradycardia; tachycardia; No point of maximal impulse, No cardiac thrills are palpable; S1 and S2; No gallop/S3, No gallop/S4, No diastolic murmur; systolic murmur; No friction rub, No click, No other Gastrointestional: No tender, No soft, No round, No distended, No pulsatile mass, No organomegaly, No guarding, No rebound, No tenderness, No hernia, No mass, No audible bowel sounds, No abnormal bowel sounds, No abdominal bruits, No spleenomegaly, No other Extremities: No normal range of motion, No non-tender, No normal inspection, No pedal edema, No calf tenderness, No normal capillary refill, No pelvis stable, No calf tenderness, No inflammation, No pedal edema, No slow capillary refill, No swelling, No other, No abrasion, No clubbing, No cyanosis, No ecchymosis, No laceration, No no lower extremity edema bilateral, No significant edema, No tenderness, No wound Neurologic/Psychiatric: no motor/sensory deficits, alert, normal mood/affect, oriented x 3, power is 5/5 both on sides Skin: No normal color, No warm/dry, No cyanosis, No cool, No diaphoresis, No damp, No ecchymosis, No jaundice, No mottled, No pallor, No rash, No tattoos/pie rcings, No ulcerations, No rash on exposed areas, No ulcerations on exposed areas, No other Results/Procedures: Labs Laboratory Tests 11/20/18 03:36: White Blood Count 12.2H, Red Blood Count 2.59L, Hemoglobin 8.5#L, Hematocrit 25L , Mean Corpuscular Volume 97, Mean Corpuscular Hemoglobin 33, Mean Corpuscular Hemoglobin Concent 34, Red Cell Distribution Width 12.5, Platelet Count 240, Mean Platelet Volume 9.2, Neutrophils (%) (Auto) 75, Lymphocytes (%) (Auto) 15, Monocytes (%) (Auto) 10, Eosinophils (%) (Auto) 0, Basophils (%) (Auto) 0, Neutrophils # (Auto) 9.1H, Lymphocytes # (Auto) 1.8, Monocytes # (Auto) 1.2H, Eosinophils # (Auto) 0.0, Basophils # (Auto) 0.0, Sodium Level 134L, Potassium Level 3.5L, Chloride Level 110H, Carbon Dioxide Level 15L, Anion Gap 9, Blood Urea Nitrogen 17, Creatinine 0.59L, Estimat Glomerular Filtration Rate > 60, BUN/Creatinine Ratio 29, Glucose Level 100, Calcium Level 7.6L, Phosphorus Level 2.5, Magnesium Level 1.4L Microbiology 11/18/18 MRSA Screen - Final, Complete MRSA not isolated A/P: Assessment/Dx: non-STEMI, Atrial fibrillation with rapid ventricular rate, Shortness of breath, Pulmonary hypertension, Aortic stenosis, Leukocytosis, Anemia, Active smoking, COPD. Plan: Type II myocardial infarction, likely due to atrial fibrillation with rapid ventricular rate. Coronary angiography done 11/19/2018 did not reveal any significant CAD. Echocardiogram done 11/19/2018 showed normal LV function with no wall motion abnormalities. Mildly dilated left atrium. Pulmonary hypertension with PA pressure of 50 mmHg.hzbk-oa-vertcphx aortic stenosis with mean gradient of 15 mmHg. Aortic valve area between 1.3-1.6 cm. Atrial fibrillation with rapid ventricular rate, on Eliquis, low-dose Cardizem, overnight amiodarone infusion. Still continues to be in atrial fibrillation. Transesophageal echocardiogram assisted cardioversion will be done today. Patient understands all the risks and complication and gave informed consent. Shortness of breath, echocardiogram did not show any significant LV systolic dysfunction. Diastolic evaluation could not be completed due to atrial fibrillation. Nvac-sx-wmkrqceg aortic stenosis. Pulmonary hypertension, likely due to COPD. Aortic stenosis,idtm-dt-kqddorxc with mean gradient of 15 mmHg. Leukocytosis,unclear etiology. Anemia,defer to the primary team. Active smoking, smoking cessation was strongly recommended. COPD.defer to the primary team. Thank you for your consultation. Please call me if you have any questions. Medina Saul MD, FACP, FACC, FSCAI, FHRS, CCDS Interventional Cardiology Cardiac Electrophysiology Vascular Medicine and Endovascular Interventions Focused Exam Lactate Level 11/19/18 05:55: Lactic Acid Level 0.90 Tj SAUL MD Nov 20, 2018 3:41 pm
--- NOTE | 2018-11-20 15:42 | Cardioversion ---
Cardioversion PROCEDURE PHYSICIAN: Medina Saul MD DATE OF PROCEDURE: 11/20/18 DIRECT EXTERNAL ELECTRICAL CARDIOVERSION: Indications: Atrial Fibrillation with rapid ventricular rate Preoperative diagnoses: Atrial Fibrillation with rapid ventricular rate Postoperative diagnosis: Sinus rhythm, Successful Electrical Cardioversion History: Atrial fibrillation with rapid ventricular rate. Anesthesia: By Anesthesia services Complications: None Specimen: None Contrast: 0 Flouroscopy: none Procedure Details: The patient was brought the labor specialist after informed consent was taken, all the risks and complications were explained including the risk of stroke. Transesophageal echocardiogram did not reveal any left atrium or left atrial appendage thrombus. Electrical cardioversion was carried out with anesthesia support with propofol. 120 joules of synchronized shock was delivered through external patches which promptly restored sinus rhythm. The patient tolerated the procedure well. Conclusions: 1.Successful Cardioversion. 2.Continue oral anticoagulation, Cardizem CD 120 mg daily, amiodarone 200 mg daily. 3.Follow up in office in 14 days. Medina Saul MD, FHRS, CCDS Cardiac Electrophysiology Tj SAUL MD Nov 20, 2018 3:42 pm
[2018-11-20] MEDS ORDERED: DILT120C94 PO (15:47)
[2018-11-20] MEDS ORDERED: APIX5TAB PO (15:47)
[2018-11-20] MEDS ORDERED: AMIO200T4 PO (15:47)
--- NOTE | 2018-11-20 15:48 | Discharge Inst-Simple/Standard ---
Discharge Inst-Standard Reconcile Patient Problems Problems Reviewed?: Yes Discharge Medications New, Converted or Re-Newed RX: Transmitted to Pharmacy Patient Instructions/Follow Up Plan of Care/Instructions/FU: Take medications as prescribed. Follow up with Dr. Saul in 1-2 weeks. Activity as Tolerated: Yes Discharge Diet: No Restrictions Return to The Hospital For: fever, dyspnea, chest pain, or if you feel like you are getting worse Planned Outpatient Orders/Ref. Pneu Vac Indicated: Yes LOIS ARGUELLO MD Nov 20, 2018 15:48
--- NOTE | 2018-11-20 15:56 | Discharge Summary ---
Diagnosis/Chief Complaint Date of Admission Nov 18, 2018 at 22:35 Date of Discharge Discharge Date: Nov 20, 2018 Discharge Time: 16:00 Admission Diagnosis Atrial Fibrillation with RVR NSTEMI Primary Care Discharge Diagnosis Paroxysmal atrial fibrillation NSTEMI, type II (1) Atrial fibrillation with RVR Status: Resolved (2) Non-STEMI (non-ST elevated myocardial infarction) Status: Acute (3) Tobacco abuse Status: Chronic (4) Essential (primary) hypertension Status: Chronic (5) Normocytic anemia Status: Chronic (6) Paroxysmal atrial fibrillation Status: Chronic Discharge Summary Discharge Physical Exam Allergies: Coded Allergies: meperidine (Verified Allergy, Unknown, 11/18/18) Vitals & I&Os Vital Signs Date Time Temp Pulse Resp B/P (MAP) Pulse Ox O2 Delivery O2 Flow Rate FiO2 11/20/18 15:00 78 11 149/110 (123) 98 Room Air 11/20/18 08:00 97.9 General Appearance: No Apparent Distress, WD/WN, Thin Respiratory: Lungs Clear, Normal Breath Sounds, No Respiratory Distress Cardiovascular: Irregularly Irregular Gastrointestinal: Normal Bowel Sounds, Non Tender, Soft Extremity: Normal Inspection, Non Tender Skin: Normal Color, Warm/Dry Neurologic/Psychiatric: Alert; No Disoriented Hospital Course Was the Problem List Reviewed?: Yes Lucita Luciano is a 78yoF with PMH HTN, tobacco abuse, who presented with chest discomfort and dyspnea and was found to be in atrial fibrillation with rapid ventricular response. She was also found to have an elevated troponin. She underwent a left heart cath which revealed non-obstructive CAD. She developed a right groin hematoma following the heart cath while she was on heparin and this was stabilized with pressure. She was started on an Amiodarone infusion for her Afib. She was started on Eliquis for anticoagulation. She underwent a LUDY cardioversion 11/20 and converted to normal sinus rhythm. She will be discharged on Amiodarone, Cardizem, and Eliquis for her atrial fibrillation. She will follow up with Dr. Saul in 2 weeks. Labs (last 24 hrs) Laboratory Tests 11/20/18 03:36: White Blood Count 12.2H, Red Blood Count 2.59L, Hemoglobin 8.5#L, Hematocrit 25L , Mean Corpuscular Volume 97, Mean Corpuscular Hemoglobin 33, Mean Corpuscular Hemoglobin Concent 34, Red Cell Distribution Width 12.5, Platelet Count 240, Mean Platelet Volume 9.2, Neutrophils (%) (Auto) 75, Lymphocytes (%) (Auto) 15, Monocytes (%) (Auto) 10, Eosinophils (%) (Auto) 0, Basophils (%) (Auto) 0, Neutrophils # (Auto) 9.1H, Lymphocytes # (Auto) 1.8, Monocytes # (Auto) 1.2H, Eosinophils # (Auto) 0.0, Basophils # (Auto) 0.0, Sodium Level 134L, Potassium Level 3.5L, Chloride Level 110H, Carbon Dioxide Level 15L, Anion Gap 9, Blood Urea Nitrogen 17, Creatinine 0.59L, Estimat Glomerular Filtration Rate > 60, BUN/Creatinine Ratio 29, Glucose Level 100, Calcium Level 7.6L, Phosphorus Level 2.5, Magnesium Level 1.4L Microbiology 11/18/18 MRSA Screen - Final, Complete MRSA not isolated Patient resulted labs reviewed. Imaging: Reviewed Imaging Report Discussion & Recommendations Discharge Planning: <30 minutes discharge planning Discharge Home Medications: Active Scripts Active Diltiazem 24Hr Cd (Diltiazem HCl) 120 Mg Cap.er.24h 120 Mg PO DAILY 90 Days Amiodarone HCl 200 Mg Tablet 200 Mg PO DAILY 90 Days Eliquis (Apixaban) 5 Mg Tablet 5 Mg PO BID 90 Days Reported Calcium (Calcium Carbonate) 500 Mg Tablet 500 Mg PO DAILY Acetaminophen 500 Mg Tablet 1,000 Mg PO Q6H PRN Lisinopril 10 Mg Tablet 10 Mg PO DAILY Condition at discharge Stable Instructions to patient/family Please see electronic discharge instructions given to patient. Clinical Quality Measures DVT/VTE Risk/Contraindication: Risk Factor Score Per Nursin RFS Level Per Nursing on Admit: 4+=Very High LOIS ARGUELLO MD Nov 20, 2018 15:56
[2018-11-20] MEDS ORDERED: AMIODARONE 200 MG (CORDARONE) TAB PO SCH (21:00)
== END 2018-11-20 16:51 | disposition home or self-care (01) | DRG 281 ==
LOC: ICU 22:35
PROVIDERS: ADMIT Family Medicine; ATTEND Family Medicine
PROC: 4A023N7 Measurement of Cardiac Sampling and Pressure, Left Heart, Percutaneous Approach (ICD-10-PCS; 2018-11-19)
PROC: B2111ZZ Fluoroscopy of Multiple Coronary Arteries using Low Osmolar Contrast (ICD-10-PCS; 2018-11-19)
PROC: B2151ZZ Fluoroscopy of Left Heart using Low Osmolar Contrast (ICD-10-PCS; 2018-11-19)
PROC: B3101ZZ Fluoroscopy of Thoracic Aorta using Low Osmolar Contrast (ICD-10-PCS; 2018-11-19)
PROC: B41D1ZZ Fluoroscopy of Aorta and Bilateral Lower Extremity Arteries using Low Osmolar Contrast (ICD-10-PCS; 2018-11-19)
PROC: 5A2204Z Restoration of Cardiac Rhythm, Single (ICD-10-PCS; principal; 2018-11-20)
DX: I48.0 Paroxysmal atrial fibrillation (principal); I21.A1 Myocardial infarction type 2; I97.630 Postprocedural hematoma of a circulatory system organ or structure following a cardiac catheterization; E87.1 Hypo-osmolality and hyponatremia; I10 Essential (primary) hypertension; I25.10 Atherosclerotic heart disease of native coronary artery without angina pectoris; I70.0 Atherosclerosis of aorta; I70.1 Atherosclerosis of renal artery; I70.203 Unspecified atherosclerosis of native arteries of extremities, bilateral legs; I70.8 Atherosclerosis of other arteries; I65.23 Occlusion and stenosis of bilateral carotid arteries; I35.0 Nonrheumatic aortic (valve) stenosis; J44.9 Chronic obstructive pulmonary disease, unspecified; D64.9 Anemia, unspecified; F17.210 Nicotine dependence, cigarettes, uncomplicated; I27.20 Pulmonary hypertension, unspecified; I95.9 Hypotension, unspecified; E87.6 Hypokalemia; E83.42 Hypomagnesemia
CPT/HCPCS: 36221; 36415; 71045; 80048; 80053; 82150; 83605; 83690; 83735; 84100; 84484; 85007; 85025; 85027; 85610; 85730; 87081; 93005; 93306; 93312; 93320; 93325; 93458

== ENCOUNTER 2018-12-07 12:02 | Outpatient (RCR) | payer MEDICARE ==
[~2018-12-07 12:02] MED LIST: ACET-93 PO; AMIO200T4 PO; APIX5TAB PO; CALC-823 PO; DILT120C94 PO; LISI10TA2 PO
== END 2019-03-07 | disposition home or self-care (01) ==
LOC: CARD 12:02
PROVIDERS: ATTEND Internal Medicine Interventional Cardiology
DX: I48.0 Paroxysmal atrial fibrillation (principal); I08.0 Rheumatic disorders of both mitral and aortic valves

== ENCOUNTER 2019-12-06 09:00 | Outpatient (CLI) | payer MEDICARE ==
[~2019-12-06] VITALS: Ht 162.6 cm; Wt 63.6 kg
[~2019-12-06 09:00] MED LIST changes: +DILT120C88 PO; -DILT120C94 PO
[2019-12-06] MEDS ORDERED: LEVO50TA6 PO ×2 (09:25)
[2019-12-06] MEDS ORDERED: DILT120C85 PO ×2 (09:25)
[2019-12-06] MEDS ORDERED: LISI40TA PO ×2 (09:25)
[2019-12-06] MEDS ORDERED: AMLO10TA7 PO ×2 (09:25)
== END 2019-12-06 09:26 ==
LOC: PREOP 09:00
PROVIDERS: ATTEND Specialist
DX: Z01.818 Encounter for other preprocedural examination (principal)

== ENCOUNTER 2019-12-07 08:27 | Day surgery (SDC) | payer MEDICARE ==
[~2019-12-07] VITALS: Ht 162.6 cm; Wt 63.6 kg
[~2019-12-07 08:27] MED LIST changes: +AMLO10TA7 PO; +DILT120C85 PO; +LEVO50TA6 PO; +LISI40TA PO
[2019-12-07] MEDS ORDERED: POVIDONE (BETADINE) OPHTH SOLN 5% 30 ML OP ONE (08:30)
[2019-12-07] MEDS ORDERED: LIDOCAINE PF 1% 2 ML VIAL IR PRN (08:30)
[2019-12-07] MEDS ORDERED: TIMOLOL MALEATE 0.5% 5 ML (TIMOPTIC) BTL OU PRN (08:30)
[2019-12-07] MEDS ORDERED: MOXIFLOXACIN OPHTH SOLN 5 MG/ML 0.3 ML SYRINGE OP ONE (08:30)
[2019-12-07 08:35] VITALS: BP 133/57
[2019-12-07] MEDS: TETRACAINE 0.5% OPHTH SOLN 4 ML BTL (SINGLE DOSE ONLY) OU PRN ×4 (08:49→09:18)
[2019-12-07] MEDS: CYCLOPENTOLATE 1% (CYCLOGYL) 2 ML DROPS OP SCH ×3 (09:02→09:18)
[2019-12-07] MEDS: PHENYLEPHRINE 10% OPHTH (NEO-SYN) 5 ML BTL OU SCH ×3 (09:02→09:18)
--- NOTE | 2019-12-07 09:25 | Ophthalmologist Pre-Op Note ---
Pre-Operative Progress Note H&P Reviewed The H&P was reviewed, patient examined and no changes noted. Date H&P Reviewed: Dec 07, 2019 Time H&P Reviewed: 09:25 Pre-Op Dx Cataract, Right Eye JAMI KNUTSON MD Dec 07, 2019 09:25
[2019-12-07] MEDS ORDERED: MIDAZOLAM 2 MG/2 ML (VERSED) VIAL ONE (09:26)
--- NOTE | 2019-12-07 09:50 | Ophthalmology Operative Report ---
Cataract removal/placement IOL PREOPERATIVE DIAGNOSIS: Cataract Right Eye POSTOPERATIVE DIAGNOSIS: Cataract Right Eye PROCEDURE: Cataract removal and placement of posterior chamber implant, right eye SURGEON: Clement Knutson ANESTHESIA: Topical with sedation COMPLICATIONS: None ESTIMATED BLOOD LOSS: Minimal DESCRIPTION OF PROCEDURE: After proper informed consent was obtained, the patient, a 79 female, was taken to the Operating Room and the right eye was anesthetized with tetracaine. The right eye was then prepped and draped in the usual manner. A wire lid speculum was placed. A paracentesis was made at the left hand position. Preservative free lidocaine was injected into the anterior chamber followed by viscoelastic. A clear corneal incision was made in the temporal position. A capsulorrhexis was preformed and the central nuclear and cortical material were removed. The posterior capsule was polished and Rob 17.5 [id number] IOL was placed into the capsular bag. The residual viscoelastic was aspirated and balanced saline solution was injected into the anterior chamber. Moxifloxacin was injected into the anterior chamber. The wound was checked and found to be water tight. The patient tolerated the procedure well without complications. CLEMENT KNUTSON MD Dec 07, 2019 09:50
[2019-12-07 10:00] VITALS: BP 146/81
[2019-12-07] MEDS ORDERED: acetaZOLAMIDE ER 500 MG CAP (DIAMOX SEQUELS) PO ONE (10:00)
--- NOTE | 2019-12-07 10:33 | Anesthesia-General Post-Op ---
MAC Patient Condition Mental Status/LOC: Same as Preop Cardiovascular: Satisfactory Nausea/Vomiting: Absent Respiratory: Satisfactory Pain: Controlled Complications: Absent Post Op Complications Complications None Follow Up Care/Instructions Patient Instructions None needed. Anesthesiology Discharge Order Discharge Order Patient is doing well, no complaints, stable vital signs, no apparent adverse anesthesia problems. No complications reported per nursing. DEION DC CRNA Dec 07, 2019 10:33
== END 2019-12-07 10:00 | disposition home or self-care (01) ==
LOC: SDC 08:27
PROVIDERS: ATTEND Specialist
DX: H25.11 Age-related nuclear cataract, right eye (principal); I10 Essential (primary) hypertension; I25.2 Old myocardial infarction; Z85.828 Personal history of other malignant neoplasm of skin; Z79.899 Other long term (current) drug therapy; Z87.891 Personal history of nicotine dependence; Z88.5 Allergy status to narcotic agent
CPT/HCPCS: 66984; V2632

== ENCOUNTER 2019-12-21 08:25 | Day surgery (SDC) | payer MEDICARE ==
[~2019-12-21] VITALS: Ht 162.6 cm; Wt 63.6 kg
[2019-12-21 08:30] VITALS: BP 193/69
[2019-12-21] MEDS ORDERED: POVIDONE (BETADINE) OPHTH SOLN 5% 30 ML OP ONE (08:30)
[2019-12-21] MEDS ORDERED: TIMOLOL MALEATE 0.5% 5 ML (TIMOPTIC) BTL OU PRN (08:30)
[2019-12-21] MEDS ORDERED: MOXIFLOXACIN OPHTH SOLN 5 MG/ML 0.3 ML SYRINGE OP ONE (08:30)
[2019-12-21] MEDS ORDERED: LIDOCAINE PF 1% 2 ML VIAL IR PRN (08:30)
[2019-12-21] MEDS: TETRACAINE 0.5% OPHTH SOLN 4 ML BTL (SINGLE DOSE ONLY) OU PRN ×4 (08:40→08:58)
[2019-12-21] MEDS: CYCLOPENTOLATE 1% (CYCLOGYL) 2 ML DROPS OP SCH ×3 (08:46→08:58)
[2019-12-21] MEDS: PHENYLEPHRINE 10% OPHTH (NEO-SYN) 5 ML BTL OU SCH ×3 (08:46→08:58)
--- NOTE | 2019-12-21 09:27 | Ophthalmologist Pre-Op Note ---
Pre-Operative Progress Note H&P Reviewed The H&P was reviewed, patient examined and no changes noted. Date H&P Reviewed: Dec 21, 2019 Time H&P Reviewed: 09:26 Pre-Op Dx Cataract, Left Eye JAMI KNUTSON MD Dec 21, 2019 09:27
[2019-12-21] MEDS ORDERED: MIDAZOLAM 2 MG/2 ML (VERSED) VIAL ONE (09:38)
--- NOTE | 2019-12-21 09:53 | Ophthalmology Operative Report ---
Cataract removal/placement IOL PREOPERATIVE DIAGNOSIS: Cataract Left Eye POSTOPERATIVE DIAGNOSIS: Cataract Left Eye PROCEDURE: Cataract removal and placement of posterior chamber implant, left eye SURGEON: Clement Knutson ANESTHESIA: Topical with sedation COMPLICATIONS: None ESTIMATED BLOOD LOSS: Minimal DESCRIPTION OF PROCEDURE: After proper informed consent was obtained, the patient, a [id number] female, was taken to the Operating Room and the left eye was anesthetized with tetracaine. The left eye was then prepped and draped in the usual manner. A wire lid speculum was placed. A paracentesis was made at the left hand position. Preservative free lidocaine was injected into the anterior chamber followed by viscoelastic. A clear corneal incision was made in the temporal position. A capsulorrhexis was preformed and the central nuclear and cortical material were removed. The posterior capsule was polished and an Rob 17.0 [id number] was placed into the capsular bag. The residual viscoelastic was aspirated and balanced saline solution was injected into the anterior chamber. Moxifloxacin was injected into the anterior chamber. The wound was checked and found to be water tight. The patient tolerated the procedure well without complications. CLEMENT KNUTSON MD Dec 21, 2019 09:53
[2019-12-21] MEDS ORDERED: acetaZOLAMIDE ER 500 MG CAP (DIAMOX SEQUELS) PO ONE (10:00)
[2019-12-21 10:05] VITALS: BP 133/71
--- NOTE | 2019-12-21 13:06 | Anesthesia-General Post-Op ---
MAC Patient Condition Mental Status/LOC: Same as Preop Cardiovascular: Satisfactory Nausea/Vomiting: Absent Respiratory: Satisfactory Pain: Controlled Complications: Absent Post Op Complications Complications None Follow Up Care/Instructions Patient Instructions None needed. Anesthesiology Discharge Order Discharge Order Patient is doing well, no complaints, stable vital signs, no apparent adverse anesthesia problems. No complications reported per nursing. KRISTINA VARGAS CRNA Dec 21, 2019 13:06
== END 2019-12-21 10:05 | disposition home or self-care (01) ==
LOC: SDC 08:25
PROVIDERS: ATTEND Specialist
DX: H25.12 Age-related nuclear cataract, left eye (principal); I10 Essential (primary) hypertension; I20.9 Angina pectoris, unspecified; E03.9 Hypothyroidism, unspecified; M06.9 Rheumatoid arthritis, unspecified; Z79.899 Other long term (current) drug therapy; Z88.5 Allergy status to narcotic agent; Z85.828 Personal history of other malignant neoplasm of skin; Z87.891 Personal history of nicotine dependence; Z90.710 Acquired absence of both cervix and uterus; Z83.3 Family history of diabetes mellitus
CPT/HCPCS: 66984; V2632